=== PATIENT | female | born 1985 | race Caucasian/White ===

== ENCOUNTER 2019-11-08 09:37 | Emergency (ER) | payer OTHER ==
[~2019-11-08] VITALS: Ht 162.6 cm; Wt 83.5 kg
[~2019-11-08 09:37] MED LIST: CIPRO500 MG PO; ERYTHROMYCIN3.5 GM; OFLOXACIN5 ML OU
[2019-11-08] MEDS ORDERED: BENADRYL25 MG PO (10:06)
== END 2019-11-08 10:12 | disposition home or self-care (01) ==
LOC: ED 09:37
DX: H92.03 Otalgia, bilateral (principal); R19.7 Diarrhea, unspecified; R05 Cough

== ENCOUNTER 2024-12-30 16:22 | Emergency (ER) | payer OTHER ==
[~2024-12-30] VITALS: Ht 162.6 cm; Wt 101.2 kg
[~2024-12-30 16:22] MED LIST changes: +BENADRYL25 MG PO
[2024-12-30 20:02] VITALS: BP 108/64
== END 2024-12-30 20:15 | disposition home or self-care (01) ==
LOC: ED 16:22
DX: S16.1XXA Strain of muscle, fascia and tendon at neck level, initial encounter (principal); W22.8XXA Striking against or struck by other objects, initial encounter; M43.12 Spondylolisthesis, cervical region; F17.200 Nicotine dependence, unspecified, uncomplicated; Z91.013 Allergy to seafood; Z91.018 Allergy to other foods
CPT/HCPCS: 72040; 72125; 99284-25

== ENCOUNTER 2025-02-23 16:19 | Emergency (ER) | payer SELFPAY ==
[~2025-02-23] VITALS: Ht 162.6 cm; Wt 99.1 kg
[2025-02-23 18:43] LABS: BASOPHILS 0.6 % (0-2); EOSINOPHILS 0.9 % (0-6); HEMATOCRIT 31.9 % (35.0-50.0); LYMPHOCYTES 22.5 % (24-44); MCH 28.5 (27-36); MCHC 34.4 g/dl (30-36); MONOCYTES 6.7 % (0-12); NEUTROPHILS 69.3 % (39-80); PLATELET COUNT 314 K/uL (140-440); RBC 3.84 M/ul (4.3-5.7); RDW 14.5 (10.5-15.0)
[2025-02-23] MEDS ORDERED: ondansetron HCL 4 MG/2 ML VIAL IV ONE (18:45)
[2025-02-23] MEDS ORDERED: KETOROLAC TROMETHAMINE 15 MG/ML VIAL IV ONE (18:45)
[2025-02-23 18:57] LABS: ALBUMIN 4.2 g/dL (3.4-5.0); ALBUMIN/GLOBULIN RATIO 1.27 (1.1-2.4); ANION GAP 12.6 (7-21); BILIRUBIN, TOTAL 0.3 mg/dL (0.2-1.0); BUN/CREATININE RATIO 13.48 (6.0-28.6); CALCIUM 9.3 mg/dL (8.5-10.1); CREATININE, SERUM 0.89 mg/dL (0.55-1.02); POTASSIUM 3.6 mmol/L (3.5-5.1); PROTEIN, TOTAL 7.5 g/dL (6.4-8.2)
[2025-02-23] MEDS ORDERED: SUCRALFATE 1 GM TAB PO ONE (21:30)
[2025-02-23] MEDS ORDERED: LIDOCAINE & ANTACID 35 ML BTL PO ONE (21:30)
[2025-02-23] MEDS ORDERED: CARAFATE1 GM PO (21:33)
[2025-02-23] MEDS ORDERED: PROTONIX40 MG PO (21:33)
[2025-02-23 21:55] VITALS: BP 108/86
== END 2025-02-23 21:55 | disposition home or self-care (01) ==
LOC: ED 16:19
PROVIDERS: Emergency Medicine
DX: K29.70 Gastritis, unspecified, without bleeding (principal); F17.200 Nicotine dependence, unspecified, uncomplicated
CPT/HCPCS: 36415; 76705; 80053; 83690; 84703; 85025; J1885; J2405

== ENCOUNTER 2025-10-15 13:19 | Emergency (ER) | payer OTHER ==
[~2025-10-15] VITALS: Ht 162.6 cm; Wt 90.0 kg
[~2025-10-15 13:19] MED LIST changes: +CARAFATE1 GM PO; +PROTONIX40 MG PO
[2025-10-15 14:12] LABS: BASOPHILS 0.4 % (0.1-1.2); EOSINOPHILS 0.6 % (0.7-5.8); LYMPHOCYTES 21.8 % (19.3-51.7); MCH 27.8 PG (25.6-32.2); MCHC 34.1 g/dL (32.2-35.5); MCV 81.8 fL (79.4-94.8); MONOCYTES 6.3 % (4.7-12.5); NEUTROPHILS 70.7 % (34.0-71.1); RBC 3.95 M/uL (3.93-5.22)
[2025-10-15] MEDS ORDERED: HYDROmorphone HCL 1 MG/ML SYR IV PRN (14:30)
[2025-10-15 14:43] LABS: ABO A; RH POSITIVE
[2025-10-15 14:49] LABS: ALT (SGPT) 28.0 U/L (14-59); AST (SGOT) 14.0 U/L (15-37); GLOMERULAR FILTRATION RATE,EST 87.0 mL/min (>60); PROTEIN, TOTAL 7.6 g/dL (6.4-8.2); UREA NITROGEN 9.0 mg/dL (7-18)
[2025-10-15] MEDS ORDERED: ONDANSETRON ODT8 MG PO (15:02)
[2025-10-15] MEDS ORDERED: HYDROCODON-ACE1 EA11 PO (15:02)
[2025-10-15] MEDS ORDERED: KETOROLAC TROMETHAMINE 15 MG/ML VIAL IV ONE (15:30)
[2025-10-15 15:50] VITALS: BP 135/78
== END 2025-10-15 15:50 | disposition home or self-care (01) ==
LOC: ED 13:19
PROVIDERS: Emergency Medicine
DX: O03.9 Complete or unspecified spontaneous abortion without complication (principal); F17.200 Nicotine dependence, unspecified, uncomplicated; Z3A.09 9 weeks gestation of pregnancy; Z91.013 Allergy to seafood; Z91.018 Allergy to other foods
CPT/HCPCS: 36415; 76801; 76817; 80053; 84702; 85025; 86900; 86901; 96374; 96375; 96376; 99284-25; J1171; J1885; J2405